=== PATIENT | female | born 1975 | race Caucasian/White ===

== ENCOUNTER 2017-11-03 13:42 | Emergency (ER) | payer OTHER, SELFPAY ==
[2017-11-03] MEDS ORDERED: KETOROLAC 30 MG/ML INJ ONE (15:52)
[2017-11-03 15:56] LABS: Urine Blood NEGATIVE (NEG); Urine Glucose NEGATIVE (NEG); Urine Protein TRACE (NEG); Urine Specific Gravity 1.025 (1.005-1.030)
--- NOTE | 2017-11-03 16:19 | ER ---
Nurse's Notes [facility] Name: Melani Taylor Age: 42 yrs Sex: Female : 1975 Arrival Date: 11/03/2017 Time: 13:46 Bed 13 Private MD: None, None Diagnosis: Lower abdominal pain, unspecified Presentation: 11/03 14:06 Presenting complaint: Patient states: Reports left lower quadrant pain for 2 months. aj1 Patient has not seen her PHCP regarding this complaint. Denies N/V/D. Denies fever, dysuria, vaginal bleeding or discharge. Transition of care: patient was not received from another setting of care. Onset of symptoms was August 2017. Risk Assessment: Do you want to hurt yourself or someone else? Patient reports no desire to harm self or others. Initial Sepsis Screen: Does the patient meet any 2 criteria? No. Patient's initial sepsis screen is negative. Does the patient have a suspected source of infection? No. Patient's initial sepsis screen is negative. Care prior to arrival: None. 14:06 Method Of Arrival: Ambulatory [facility] 14:06 Acuity: NICOLE 3 aj Triage Assessment: 14:10 General: Appears in no apparent distress. comfortable, Behavior is calm, cooperative, aj1 appropriate for age. Pain: Complains of pain in left lower quadrant Pain currently is 8 out of 10 on a pain scale. Neuro: Level of Consciousness is awake, alert, obeys commands. Cardiovascular: Patient's skin is warm and dry. Respiratory: Airway is patent Respiratory effort is even, unlabored, Respiratory pattern is regular, symmetrical. GI: Reports lower abdominal pain, Patient currently denies diarrhea, nausea, vomiting. : Denies burning with urination, discharge, vaginal bleeding. Derm: Skin is pink, warm \T\ dry. normal. 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 aj Historical: - Allergies: 14:10 No Known Allergies; aj1 - Home Meds: 14:10 lovastatin 20 mg Oral tab 1 tab once daily [Active]; Prozac 40 mg Oral cap 1 cap once aj1 daily [Active]; metformin 1,000 mg Oral tab 1 tab 2 times per day [Active]; metoprolol tartrate 100 mg Oral tab 1 tab 2 times per day [Active]; amlodipine 5 mg tab 1 tab once daily [Active]; losartan-hydrochlorothiazide 100-12.5 mg oral tab 1 tab once daily [Active]; - PMHx: 14:10 Hyperlipidemia; Hypertension; Diabetes - NIDDM; polycystic ovarian syndrome; aj1 - PSHx: 14:10 ; aj1 - Immunization history:: Flu vaccine is not up to date. - Social history:: Smoking status: Patient/guardian denies using tobacco. - Ebola Screening: : Patient denies travel to an Ebola-affected area in the 21 days before illness onset. Screenin:58 Abuse screen: Denies threats or abuse. Nutritional screening: No deficits noted. tw2 Tuberculosis screening: No symptoms or risk factors identified. Fall Risk None identified. Assessment: 15:27 General: Appears in no apparent distress. Behavior is calm, cooperative, appropriate tw2 for age. Pain: Complains of pain in abdomen. Neuro: Level of Consciousness is awake, alert, obeys commands, Oriented to person, place, time, situation. Cardiovascular: Denies chest pain, shortness of breath, Heart tones S1 S2 Patient's skin is warm and dry. Respiratory: Airway is patent Respiratory effort is even, unlabored, Respiratory pattern is regular, symmetrical, Breath sounds are clear bilaterally. GI: Abdomen is round non-distended, Bowel sounds present X 4 quads. Abd is soft X 4 quads. : No signs and/or symptoms were reported regarding the genitourinary system. EENT: No signs and/or symptoms were reported regarding the EENT system. Derm: No signs and/or symptoms reported regarding the dermatologic system. Musculoskeletal: Range of motion: intact in all extremities. 15:56 Reassessment: pt in US at this time, not available for vs or medication admin. tw2 16:27 Reassessment: Patient appears in no apparent distress at this time. No changes from tw2 previously documented assessment. Patient and/or family updated on plan of care and expected duration. Pain level reassessed. Patient is alert, oriented x 3, equal unlabored respirations, skin warm/dry/pink. 17:03 Reassessment: Patient appears in no apparent distress at this time. No changes from tw2 previously documented assessment. Patient and/or family updated on plan of care and expected duration. Pain level reassessed. Patient is alert, oriented x 3, equal unlabored respirations, skin warm/dry/pink. Vital Signs: 14:10 BP 142 / 103; Pulse 73; Resp 20; Temp 97.4(TE); Pulse Ox 97% on R/A; Weight 90.72 kg aj1 (R); Height 5 ft. 6 in. (167.64 cm); Pain 8/10; 16:23 Pulse 70; Resp 18; Pulse Ox 98% on R/A; tw2 16:27 BP 142 / 94; Pulse 72; Resp 17; Pulse Ox 96% on R/A; tw2 17:03 BP 125 / 94; Pulse 69; Resp 17; Pulse Ox 99% on R/A; tw2 14:10 Body Mass Index 32.28 (90.72 kg, 167.64 cm) aj1 ED Course: 13:46 Patient arrived in ED. mr 13:46 None, None is Private Physician. mr 14:08 Triage completed. aj1 14:10 Arm band placed on Patient placed in an internal wait recliner, Patient notified of aj1 wait time. 15:27 Bed in low position. Adult w/ patient. Pulse ox on. NIBP on. tw2 15:28 Lou Stack, ANASTACIO is Primary Nurse. tw2 15:29 Zabrina Castro FNP-C is PHCP. snw 15:29 Georges Mederos MD is Attending Physician. snw 16:11 US Transvaginal Study (Probe) In Process Unspecified. EDMS 16:29 Awaiting: observation at IM medication and update with results from provider prior to tw2 discharge. 16:30 No provider procedures requiring assistance completed. Patient did not have IV access tw2 during this emergency room visit. Administered Medications: 14:15 Drug: TORadol 60 mg Route: IM; Site: left deltoid; tw2 17:03 Follow up: Response: No adverse reaction tw2 Outcome: 16:18 Discharge ordered by . snw 17:03 Discharged to home ambulatory, with family. tw2 17:03 Condition: stable 17:03 Discharge instructions given to patient, family, Instructed on discharge instructions, follow up and referral plans. no drinking with medication, no driving heavy equipment, medication usage, Demonstrated understanding of instructions, follow-up care, medications, Prescriptions given X 2. 17:04 Patient left the ED. tw2 Signatures: Dispatcher MedHo Gricel Noel, RN RN aj1 Zabrina Castro, ALUM PLANT OPERATOR-C ALUM PLANT OPERATOR-Csnw Kim Reyes mr Luo Stack, RN RN tw2
--- NOTE | 2017-11-03 16:19 | EDPHYS ---
Physician Documentation [facility] Name: Melani Taylor Age: 42 yrs Sex: Female : 1975 Arrival Date: 11/03/2017 Time: 13:46 Bed 13 Private MD: None, None ED Physician Georges Mederos HPI: 11/03 15:41 This 42 yrs old Female presents to ER via Ambulatory with complaints of snw Abdominal Pain. 15:41 The patient presents with abdominal pain in the left lower quadrant. Onset: The snw symptoms/episode began/occurred gradually, 2 month(s) ago, and became persistent. The symptoms radiate to left groin. Associated signs and symptoms: none. The symptoms are described as sharp. Severity of pain: At its worst the pain was moderate. It is unknown whether or not the patient has had similar symptoms in the past. The patient has not recently seen a physician, called but was unable to secure a timely appointment for an office visit, states she has an appt next month. 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 aj1 Historical: - Allergies: 14:10 No Known Allergies; aj1 - Home Meds: 14:10 lovastatin 20 mg Oral tab 1 tab once daily [Active]; Prozac 40 mg Oral cap 1 cap once aj1 daily [Active]; metformin 1,000 mg Oral tab 1 tab 2 times per day [Active]; metoprolol tartrate 100 mg Oral tab 1 tab 2 times per day [Active]; amlodipine 5 mg tab 1 tab once daily [Active]; losartan-hydrochlorothiazide 100-12.5 mg oral tab 1 tab once daily [Active]; - PMHx: 14:10 Hyperlipidemia; Hypertension; Diabetes - NIDDM; polycystic ovarian syndrome; aj1 - PSHx: 14:10 ; aj1 - Immunization history:: Flu vaccine is not up to date. - Social history:: Smoking status: Patient/guardian denies using tobacco. - Ebola Screening: : Patient denies travel to an Ebola-affected area in the 21 days before illness onset. ROS: 15:40 Constitutional: Negative for fever, chills, and weight loss, Eyes: Negative for injury, snw pain, redness, and discharge, ENT: Negative for injury, pain, and discharge, Neck: Negative for injury, pain, and swelling, Cardiovascular: Negative for chest pain, palpitations, and edema, Respiratory: Negative for shortness of breath, cough, wheezing, and pleuritic chest pain, Abdomen/GI: Negative for nausea, vomiting, diarrhea, and constipation, + abdominal pain x 2 months Back: Negative for injury and pain, : Negative for injury, bleeding, discharge, and swelling, MS/Extremity: Negative for injury and deformity, Skin: Negative for injury, rash, and discoloration, Neuro: Negative for headache, weakness, numbness, tingling, and seizure. Exam: 15:38 Constitutional: This is a well developed, well nourished patient who is awake, alert, snw and in no acute distress. Head/Face: Normocephalic, atraumatic. Eyes: Pupils equal round and reactive to light, extra-ocular motions intact. Lids and lashes normal. Conjunctiva and sclera are non-icteric and not injected. Cornea within normal limits. Periorbital areas with no swelling, redness, or edema. ENT: Nares patent. No nasal discharge, no septal abnormalities noted. Tympanic membranes are normal and external auditory canals are clear. Oropharynx with no redness, swelling, or masses, exudates, or evidence of obstruction, uvula midline. Mucous membranes moist. Neck: Trachea midline, no thyromegaly or masses palpated, and no cervical lymphadenopathy. Supple, full range of motion without nuchal rigidity, or vertebral point tenderness. No Meningismus. Chest/axilla: Normal chest wall appearance and motion. Nontender with no deformity. No lesions are appreciated. Cardiovascular: Regular rate and rhythm with a normal S1 and S2. No gallops, murmurs, or rubs. Normal PMI, no JVD. No pulse deficits. Respiratory: Lungs have equal breath sounds bilaterally, clear to auscultation and percussion. No rales, rhonchi or wheezes noted. No increased work of breathing, no retractions or nasal flaring. Back: No spinal tenderness. No costovertebral tenderness. Full range of motion. Skin: Warm, dry with normal turgor. Normal color with no rashes, no lesions, and no evidence of cellulitis. MS/ Extremity: Pulses equal, no cyanosis. Neurovascular intact. Full, normal range of motion. Neuro: Awake and alert, GCS 15, oriented to person, place, time, and situation. Cranial nerves II-XII grossly intact. Motor strength 5/5 in all extremities. Sensory grossly intact. Cerebellar exam normal. Normal gait. 15:38 Abdomen/GI: Inspection: abdomen appears normal, Bowel sounds: normal, Palpation: mild abdominal tenderness, in the left groin. Vital Signs: 14:10 BP 142 / 103; Pulse 73; Resp 20; Temp 97.4(TE); Pulse Ox 97% on R/A; Weight 90.72 kg aj1 (R); Height 5 ft. 6 in. (167.64 cm); Pain 8/10; 16:23 Pulse 70; Resp 18; Pulse Ox 98% on R/A; tw2 16:27 BP 142 / 94; Pulse 72; Resp 17; Pulse Ox 96% on R/A; tw2 17:03 BP 125 / 94; Pulse 69; Resp 17; Pulse Ox 99% on R/A; tw2 14:10 Body Mass Index 32.28 (90.72 kg, 167.64 cm) aj1 MDM: 15:29 Patient medically screened. snw 20:22 Data reviewed: vital signs, nurses notes. Data interpreted: Pulse oximetry: on room air snw is 99 %. Interpretation: normal. Counseling: I had a detailed discussion with the patient and/or guardian regarding: the historical points, exam findings, and any diagnostic results supporting the discharge/admit diagnosis, the presence of at least one elevated blood pressure reading (>120/80) during this emergency department visit, lab results, the need for outpatient follow up, for definitive care, to return to the emergency department if symptoms worsen or persist or if there are any questions or concerns that arise at home. Special discussion: Based on the patient's Hx, exam, and Dx evaluation, there is no indication for emergent surgery or inpatient Tx. It is understood by the patient/guardian that if the Sx's persist or worsen they need to return immediately for re-evaluation. Based on the history and exam findings, there is no indication for further emergent testing or inpatient evaluation. I discussed with the patient/guardian the need to see the primary care provider for further evaluation of the symptoms. 11/03 15:38 Order name: Urine Culture snw 11/03 15:38 Order name: Urine Microscopic Only; Complete Time: 17:31 snw 11/03 15:38 Order name: US Transvaginal Study (Probe) snw 11/03 15:51 Order name: Urine Dipstick--Ancillary (enter results); Complete Time: 15:58 ag 11/03 15:51 Order name: Urine --Ancillary (enter results); Complete Time: 15:58 ag 11/03 15:38 Order name: Urine Dipstick-Ancillary (obtain specimen); Complete Time: 16:23 snw Administered Medications: 14:15 Drug: TORadol 60 mg Route: IM; Site: left deltoid; tw2 17:03 Follow up: Response: No adverse reaction tw2 Disposition: 11/04 14:13 Co-signature as Attending Physician, Georges Mederos MD I agree with the assessment and kdr plan of care. Disposition: 11/03/17 16:18 Discharged to Home. Impression: Lower abdominal pain, unspecified. - Condition is Stable. - Discharge Instructions: Hypertension, Pain Without a Known Cause, Abdominal Pain, Women. - Prescriptions for Bentyl 20 mg Oral Tablet - take 1 tablet by ORAL route every 6 hours As needed; 20 tablet. Diclofenac Sodium 75 mg Oral Tablet Sustained Release - take 1 tablet by ORAL route 2 times per day; 30 tablet. - Work release form, Medication Reconciliation Form, Thank You Letter, Antibiotic Education, Prescription Opioid Use form. - Follow up: Private Physician; When: 2 - 3 days; Reason: Recheck today's complaints, Continuance of care, Re-evaluation by your physician. Follow up: Emergency Department; When: As needed; Reason: Worsening of condition. Signatures: Dispatcher MedHahnemann University HospitalGricel Main RN RN aj1 Georges Mederos MD MD [facility] Zabrina Castro, CHICLE GRINDER FEEDER-C CHICLE GRINDER FEEDER-Csnw Lou Stack RN RN tw2 Corrections: (The following items were deleted from the chart) 11/03 17:04 16:18 11/03/2017 16:18 Discharged to Home. Impression: Lower abdominal pain, tw2 unspecified. Condition is Stable. Forms are Medication Reconciliation Form, Thank You Letter, Antibiotic Education, Prescription Opioid Use. Follow up: Private Physician; When: 2 - 3 days; Reason: Recheck today's complaints, Continuance of care, Re-evaluation by your physician. Follow up: Emergency Department; When: As needed; Reason: Worsening of condition. snw
[2017-11-03 16:55] LABS: Urine Bacteria 20-50 /HPF (<20); Urine RBC <5 /HPF (NONE SEEN)
[2017-11-03 17:02] LABS: Urine Culture Reflex Order NOT NEEDED
--- NOTE | 2017-11-03 17:43 | RAD REPORT ---
EXAM DESCRIPTION: US - Transvaginal Study Probe - 11/03/2017 4:10 pm CLINICAL HISTORY: left groin pain Pelvic pain. COMPARISON: TRANSVAGINAL STUDY PROBE dated 07/02/2008 FINDINGS: The uterus is normal in size, shape and echotexture. The uterus measures 7.3 x 5.6 x 4.6 c m. The endometrial stripe measures 6 mm, normal. Both ovaries are normal in size, shape and echotexture. The right ovary measures 4.4 x 3.5 x 2.3 cm. The left ovary measures 3.8 x 2.6 x 2.5 cm. No ovarian or parovarian lesions. No adnexal masses. Normal Doppler blood flow was demonstrated to both ovaries. No significant pelvic ascites. IMPRESSION: Unremarkable study.
== END 2017-11-03 17:04 | disposition home or self-care (01) ==
LOC: ER 13:42
DX: R10.32 Left lower quadrant pain (principal); I10 Essential (primary) hypertension; E11.9 Type 2 diabetes mellitus without complications; Z79.84 Long term (current) use of oral hypoglycemic drugs; E78.5 Hyperlipidemia, unspecified
CPT/HCPCS: 76830; 81003; 81015; 81025; 87086; 87088; 96372; 99284